=== PATIENT | male | born 1955 | race Caucasian/White ===

== ENCOUNTER 2020-06-08 19:17 | Emergency (ER) | payer BC ==
--- NOTE | 2020-06-08 19:54 | EDM.PDOC ---
ED HPI GENERAL MEDICAL PROBLEM - General Chief Complaint: Chest Pain Stated Complaint: CHEST PAIN Time Seen by Provider: 06/08/20 19:30 Source of Information: Reports: Patient History Limitations: Reports: No Limitations - History of Present Illness INITIAL COMMENTS - FREE TEXT/NARRATIVE: pt comes from home w , with c/o epigastric/RUQ abd pain since 3 pm, describe it as sharp/ 9/10 / nonradiating and similar to pain he had when he had AR in 2017. pt denies any other associated sx with this, including nausea, fever, chills,bowel movement changes,,etc and denies any other medical concerns, he took [address] to [address] and now feels the pain almost gone. . pt report known Hx of cholelithiasis . Upper Chest Pain Score (Numeric/FACES): 3 - Related Data Allergies Allergy/AdvReac Type Severity Reaction Status Date / Time celecoxib [From Celebrex] Allergy Chest Pain Verified 06/08/20 19:21 Home Meds: Home Meds Albuterol [Proventil Neb Soln] 0.63 mg NEB Q6H 06/08/20 [History] Arformoterol [Brovana] 15 mcg INH DAILY 06/08/20 [History] Gabapentin [Neurontin] 100 mg PO DAILY 06/08/20 [History] Simvastatin 10 mg PO DAILY 06/08/20 [History] Tiotropium [Spiriva HandiHaler] 18 mcg INH DAILY 06/08/20 [History] carvediloL [Coreg] 12.5 mg PO DAILY 06/08/20 [History] Past Medical History Cardiovascular History: Reports: AR, Stents Other Cardiovascular History: Reports heart attack in 2017; stents placed in 2017 and 2018; currently has 3-4 stents per patient Respiratory History: Reports: COPD Neurological History: Reports: CVA Other Neuro History: 2008 per patient Social & Family History - Tobacco Use Smoking Status *Q: Former Smoker Years of Tobacco use: 35 Packs/Tins Daily: 3 Used Tobacco, but Quit: Yes Month/Year Tobacco Last Used: 2017 ED ROS GENERAL - Review of Systems Review Of Systems: See Below Constitutional: Reports: No Symptoms. Denies: Fever, Chills, Fatigue HEENT: Reports: No Symptoms Respiratory: Reports: No Symptoms Cardiovascular: Reports: No Symptoms. Denies: Chest Pain, Dyspnea on Exertion GI/Abdominal: Reports: Abdominal Pain. Denies: Black Stool, Bloody Stool, Diarrhea : Reports: No Symptoms Musculoskeletal: Reports: No Symptoms Skin: Reports: No Symptoms Neurological: Reports: No Symptoms Psychiatric: Reports: No Symptoms ED EXAM, GENERAL - Physical Exam Exam: See Below Exam Limited By: No Limitations General Appearance: Alert, No Apparent Distress Eye Exam: Bilateral Eye: Normal Inspection Ears: Normal External Exam Nose: Normal Inspection Throat/Mouth: Normal Inspection Head: Atraumatic, Normocephalic Neck: Normal Inspection, Supple, Non-Tender Respiratory/Chest: No Respiratory Distress, Lungs Clear, Normal Breath Sounds Cardiovascular: Normal Peripheral Pulses, Regular Rate, Rhythm GI/Abdominal: Normal Bowel Sounds, Soft, Guarding, Tender (tender at RUQ with some gaurding. ) Back Exam: Normal Inspection Extremities: Normal Inspection, Normal Range of Motion Neurological: Alert, Oriented, CN II-XII Intact, Normal Reflexes, No Motor/Sensory Deficits Psychiatric: Normal Affect Skin Exam: Warm, Dry Course - Vital Signs Text/Narrative:: EKG and CXR shows no acute changes , labs unremarkable, pain at RUQ resolved on repeat exam. pt is asymptomatic . no signs of bilarry obstruction or cholecystitis on his labs. i do feel this pain is secondary to cholelithiasis , no cardiac etiology. pt is medically stable for discharge home with instructions to follow with his PCP and surgeon this coming week. Last Recorded V/S: Last Vital Signs Temp 36.7 C 06/08/20 19:27 Pulse 74 06/08/20 20:32 Resp 12 06/08/20 19:27 BP 114/59 L 06/08/20 20:32 Pulse Ox 95 06/08/20 20:32 - Orders/Labs/Meds Orders: Active Orders 24 hr Category Date Time Status Chest 1V Frontal [CR] Stat Exams 06/08/20 19:54 Taken Labs: Laboratory Tests 06/08/20 06/08/20 06/08/20 Range/Units 19:25 19:25 19:25 WBC 9.9 (4.5-12.0) X10-3/uL RBC 5.09 (4.30-5.75) x10(6)uL Hgb 14.4 (13.5-17.8) g/dL Hct 44.1 (30.0-51.3) % MCV 86.6 (80-96) fL MCH 28.2 (27.7-33.6) pg MCHC 32.6 (32.2-35.4) g/dL RDW 13.3 (11.5-15.5) % Plt Count 263 (125-369) X10(3)uL Sodium 139 (135-145) mmol/L Potassium 3.4 L (3.5-5.3) mmol/L Chloride 104 (100-110) mmol/L Carbon Dioxide 24 (21-32) mmol/L BUN 26 H (7-18) mg/dL Creatinine 1.0 (0.70-1.30) mg/dL Est Cr Clr Drug Dosing TNP Estimated GFR (MDRD) > 60 (>60) BUN/Creatinine Ratio 26.0 H (9-20) Glucose 129 H (80-116) mg/dL Calcium 8.5 L (8.6-10.2) mg/dL Total Bilirubin 0.6 (0.1-1.3) mg/dL AST 25 (5-25) IU/L ALT 16 (12-36) U/L Alkaline Phosphatase 64 (56-112) IU/L Troponin I 10.3 (4.0-60.3) pg/mL Total Protein 6.6 (6.0-8.0) g/dL Albumin 3.8 (3.2-4.6) g/dL Globulin 2.8 g/dL Albumin/Globulin Ratio 1.4 Amylase 43 (25-115) U/L Lipase 165 (73-393) U/L Urine Color (YELLOW) Urine Appearance (CLEAR) Urine pH (5.0-6.5) Ur Specific [place] (1.010-1.025) Urine Protein (NEGATIVE) mg/dL Urine Glucose (UA) (NORMAL) mg/dL Urine Ketones (NEGATIVE) mg/dL Urine Occult Blood (NEGATIVE) Urine Nitrite (NEGATIVE) Urine Bilirubin (NEGATIVE) Urine Urobilinogen (NEGATIVE) mg/dL Ur Leukocyte Esterase (NEGATIVE) Urine RBC (0-5) Urine WBC (0-5) Ur Squamous Epith Cells (NS,R,O) Urine Bacteria (NS) 06/08/20 Range/Units 20:45 WBC (4.5-12.0) X10-3/uL RBC (4.30-5.75) x10(6)uL Hgb (13.5-17.8) g/dL Hct (30.0-51.3) % MCV (80-96) fL MCH (27.7-33.6) pg MCHC (32.2-35.4) g/dL RDW (11.5-15.5) % Plt Count (125-369) X10(3)uL Sodium (135-145) mmol/L Potassium (3.5-5.3) mmol/L Chloride (100-110) mmol/L Carbon Dioxide (21-32) mmol/L BUN (7-18) mg/dL Creatinine (0.70-1.30) mg/dL Est Cr Clr Drug Dosing Estimated GFR (MDRD) (>60) BUN/Creatinine Ratio (9-20) Glucose (80-116) mg/dL Calcium (8.6-10.2) mg/dL Total Bilirubin (0.1-1.3) mg/dL AST (5-25) IU/L ALT (12-36) U/L Alkaline Phosphatase (56-112) IU/L Troponin I (4.0-60.3) pg/mL Total Protein (6.0-8.0) g/dL Albumin (3.2-4.6) g/dL Globulin g/dL Albumin/Globulin Ratio Amylase (25-115) U/L Lipase (73-393) U/L Urine Color Yellow (YELLOW) Urine Appearance Clear (CLEAR) Urine pH 5.0 (5.0-6.5) Ur Specific [place] 1.020 (1.010-1.025) Urine Protein Negative (NEGATIVE) mg/dL Urine Glucose (UA) Normal (NORMAL) mg/dL Urine Ketones Negative (NEGATIVE) mg/dL Urine Occult Blood Negative (NEGATIVE) Urine Nitrite Negative (NEGATIVE) Urine Bilirubin Negative (NEGATIVE) Urine Urobilinogen Normal (NEGATIVE) mg/dL Ur Leukocyte Esterase Negative (NEGATIVE) Urine RBC 0-5 (0-5) Urine WBC 0-5 (0-5) Ur Squamous Epith Cells Occasional (NS,R,O) Urine Bacteria Rare H (NS) Departure - Departure Time of Disposition: 21:13 Disposition: Home, Self-Care 01 Clinical Impression: Cholelithiases - Discharge Information Forms: ED Department Discharge Sepsis Event Note (ED) - Evaluation Sepsis Screening Result: No Definite Risk - Focused Exam Vital Signs: Vital Signs Temp Pulse Resp BP Pulse Ox 06/08/20 20:32 74 114/59 L 95 06/08/20 19:27 36.7 C 73 12 122/72 98 - My Orders Last 24 Hours: My Active Orders 06/08/20 19:54 Chest 1V Frontal [CR] Stat - Assessment/Plan Last 24 Hours: My Active Orders 06/08/20 19:54 Chest 1V Frontal [CR] Stat
--- NOTE | 2020-06-11 11:22 | CR ---
CHEST ONE VIEW: INDICATION: Chest pain. AP upright portable view of the chest 06/08/2020--no comparisons. Overlying EKG leads are noted. The heart is normal in size and shape. Mediastinum was essentially unremarkable. A definite active infiltrate or effusion was not identified. IMPRESSION: No acute process. MTDD
== END 2020-06-08 21:30 | disposition home or self-care (01) ==
LOC: FB.ED 19:17
DX: K80.20 Calculus of gallbladder without cholecystitis without obstruction (principal); J44.9 Chronic obstructive pulmonary disease, unspecified; I25.2 Old myocardial infarction; Z86.73 Personal history of transient ischemic attack (TIA), and cerebral infarction without residual deficits; Z95.5 Presence of coronary angioplasty implant and graft; Z87.891 Personal history of nicotine dependence; Z88.1 Allergy status to other antibiotic agents; Z79.899 Other long term (current) drug therapy
CPT/HCPCS: 36415; 71045; 80053; 81001; 82150; 83690; 84484; 85027; 93005; 99283; 99285-25